=== PATIENT | female | born 1995 | race Caucasian/White ===

== ENCOUNTER 2022-08-23 13:33 | Outpatient (CLI) | payer OTHER, SELFPAY | END 2022-08-23 13:34 | disposition home or self-care (01) | PROVIDERS: Visit Provider Registered Nurse | DX: Z01.419 Encounter for gynecological examination (general) (routine) without abnormal findings (principal); Z13.6 Encounter for screening for cardiovascular disorders; Z13.1 Encounter for screening for diabetes mellitus; Z13.29 Encounter for screening for other suspected endocrine disorder | CPT/HCPCS: 80061; 84443 ==

== ENCOUNTER 2023-09-05 09:20 | Outpatient (CLI) | payer OTHER, SELFPAY | END 2023-09-05 09:21 | disposition home or self-care (01) | LOC: NFLDREF 09-26 09:03 | PROVIDERS: PCP Registered Nurse; Referring Provider Registered Nurse; Visit Provider Registered Nurse | DX: Z31.69 Encounter for other general counseling and advice on procreation (principal) | CPT/HCPCS: 84144 ==

== ENCOUNTER 2023-11-19 09:42 | Outpatient (CLI) | payer OTHER, SELFPAY | END 2023-11-19 09:43 | disposition home or self-care (01) | PROVIDERS: PCP Registered Nurse; Visit Provider Registered Nurse | DX: N97.9 Female infertility, unspecified (principal) | CPT/HCPCS: 82670; 83002; 84270; 84402; 84403 ==

== ENCOUNTER 2023-11-25 08:53 | Outpatient (CLI) | payer OTHER, SELFPAY ==
--- NOTE | 2023-11-25 09:15 | CRLHL7_ITS ---
For Patients: As a result of the Century Cures Act, medical imaging exams and procedure reports are released immediately into your electronic medical record. You may view this report before your referring provider. If you have questions, please contact your health care provider. Indication: ENCOUNTER FOR [employer] Technique: Routine hysterosalpingogram performed. Fluoroscopic time 55 seconds. IMPRESSION: Normal patency of the right fallopian tube with spillage. Mild irregularity and filling defects associated with the left cornua with incomplete filling of the left fallopian tube consistent with non patency. Dictated by Bret Kamara MD @ 11/25/2023 2:45:41 PM (Electronically Signed)
--- NOTE | 2023-11-25 09:49 | PM.PROC ---
Procedure Note Time Seen by Provider: 09:30 Date Seen: 11/25/23 Date of procedure: 11/25/23 Will [facility] bill your pro fee for this procedure?: Yes Pre-op diagnosis: 1. Primary infertility Post-op diagnosis: same Procedure Description: PREPROCEDURE DIAGNOSIS: Primary Infertility POSTPROCEDURE DIAGNOSIS: 1. Infertility 2. Patent right fallopian tubes and blocked left fallopian tube NAME OF PROCEDURE: Hysterosalpingogram. ANESTHESIA: None. COMPLICATIONS: None. PROCEDURE: UPT negative today. After obtaining written consent, the patient was placed in the dorsal lithotomy position on the x-ray table. An open-sided bivalve speculum was introduced into the vagina and the cervix easily visualized. She is at the tail end of her menstrual cycle, small amount of blood in her vaginal vault. The cervix and vagina were then prepped with Betadine. Os binder/cervical dilator used: No. A balloon tipped double-lumen catheter was then gently inserted through the cervical opening into the uterine cavity to the level of the fundus. The balloon was insufflated with 3 mL of air. The speculum was removed. The patient was repositioned in the supine position, covered, and the radiologist was called to the room. A hysterosalpingogram was then performed. A total of 30 cc of Optiray 300 water soluble contrast dye was injected through the double-lumen catheter under moderate pressure. There was immediate fill of the uterine cavity to the cornua and immediate fill of right fallopian tubes and free spillage of dye on right side. Left side had no spill pass the cornua.The balloon was deflated. The catheter was removed. The patient tolerated the procedure well, though she did have moderate cramping discomfort during and just after the procedure. She was discharged to home in stable condition and make an appointment with her physician to review all of her lab results and procedure results.
== END 2023-11-25 08:54 | disposition home or self-care (01) ==
PROVIDERS: Visit Provider Obstetrics & Gynecology
DX: Z31.9 Encounter for procreative management, unspecified (principal)
CPT/HCPCS: 58340; 74740; A4649; Q9967

== ENCOUNTER 2024-03-19 11:26 | Outpatient (CLI) | payer OTHER, SELFPAY | END 2024-03-19 11:27 | disposition home or self-care (01) | LOC: FRMREF 11:26 | PROVIDERS: Visit Provider Registered Nurse | DX: N97.9 Female infertility, unspecified (principal); Z31.69 Encounter for other general counseling and advice on procreation | CPT/HCPCS: 83520 ==

== ENCOUNTER 2024-03-23 14:39 | Outpatient (CLI) | payer OTHER, SELFPAY ==
--- NOTE | 2024-03-23 14:45 | CRLHL7_ITS ---
For Patients: As a result of the Century Cures Act, medical imaging exams and procedure reports are released immediately into your electronic medical record. You may view this report before your referring provider. If you have questions, please contact your health care provider. INDICATION: Female infertility COMPARISON: none TECHNIQUE: 2D [place] scale and color Doppler images were acquired of the pelvis using a transabdominal and transvaginal approach. FINDINGS: Sonographic images demonstrate a normal size and smooth outer contour of the uterus. Uterus measures 7.4 cm in length by 4.0 cm in AP diameter by 4.5 cm in transverse dimension. The myometrium has a normal uniform echotexture. The endometrial lining appears normal and measures 5 mm in composite thickness. The right ovary measures 3.3 x 1.5 x 2.6 cm in size and the left ovary measures 3.2 x 2.0 x 2.0 cm. The ovaries demonstrate normal arterial and venous blood flow on color Doppler analysis. There are no suspicious fluid collections within the cul-de-sac. Trace physiologic free fluid. IMPRESSION: Normal pelvic ultrasound. Dictated by Bret Kamara MD @ 03/24/2024 12:11:14 PM (Electronically Signed)
== END 2024-03-23 14:40 | disposition home or self-care (01) ==
LOC: US 14:40
PROVIDERS: Visit Provider Registered Nurse
DX: N97.9 Female infertility, unspecified (principal)
CPT/HCPCS: 76830; 76856